=== PATIENT | female | born 1955 | race Caucasian/White ===

== ENCOUNTER → 2019-06-29 09:56 | Outpatient (CLI) | payer OTHER, SELFPAY ==
--- NOTE | 2019-06-29 10:35 | MM_ITS ---
PROCEDURE: MM DIG SCREENING MAMM BI W/CAD CLINICAL INDICATION: SCREENING There is a history of breast cancer patient's paternal cousin diagnosed after menopause. COMPARISON: ALISA DIG SCREEN CAD LEA B from 05/13/2013 ALISA DIG SCREEN CAD LEA B from 12/07/2015 ALISA DIG SCREEN CAD LEA B from 03/13/2017 ALISA SCREENING from 03/31/2018 TECHNIQUE: Standard CC and MLO images were obtained. R2 CAD reviewed. FINDINGS: Mild scattered fibroglandular densities are seen throughout both breasts. The findings are fairly symmetrical bilaterally. There is no suspicious lesion and no suspicious microcalcifications. IMPRESSION: Fibrofatty parenchyma with no suspicious lesions seen BI-RAD Category: 1 Negative FOLLOW-UP: 1YR 1 Year Follow-up (A letter has been sent to the patient regarding results of the study.) Dictated by: Dr. Bahman Boykin MD 07/01/2019 15:[address] Bahman Boykin MD in [place] 07/01/2019 15:09
--- NOTE | 2019-06-29 10:35 | XR_ITS ---
PROCEDURE: XR DEXA AXIAL SKELETON CLINICAL HISTORY: post menopausal screening COMPARISON: No exams were available for comparison FINDINGS: Lumbar spine density not utilized due to underlying hardware. Lowest density in the hip is in the right femoral neck at 0.819 grams/centimeter sq with a T-score of -1.6 IMPRESSION: Osteopenia with moderate fracture risk. Treatment advised. Suggest follow-up exam June 2021 Dictated by: Олег Kang MD 06/29/2019 11:52 Electronically signed by Олег Kang MD in [place] 06/29/2019 11:52
== END ==
PROVIDERS: PCP Emergency Medicine; Visit Provider Emergency Medicine
DX: Z12.31 Encounter for screening mammogram for malignant neoplasm of breast (principal); Z13.820 Encounter for screening for osteoporosis; M85.89 Other specified disorders of bone density and structure, multiple sites
CPT/HCPCS: 77067; 77080

== ENCOUNTER → 2020-06-29 07:53 | Outpatient (CLI) | payer BC, SELFPAY ==
--- NOTE | 2020-06-29 07:55 | MM_ITS ---
PROCEDURE: MM DIG SCREENING MAMM BI W/CAD Referring Doctor: Chetan Ndiaye Patient Age:65Y CLINICAL INDICATION: SCREENING routine screening. No hormones.. No new complaints. Family history: Maternal cousin breast cancer age 68 COMPARISON: MG ALISA DIG SCREEN CAD LEA B from 12/07/2015 MG ALISA DIG SCREEN CAD LEA B from 03/13/2017 MG ALISA SCREENING from 03/31/2018 MG MM DIG SCREENING MAMM BI W/CAD from 06/29/2019 TECHNIQUE: Standard CC and MLO images were obtained. R2 CAD reviewed. Bilateral digital breast tomosynthesis included. FINDINGS: Mild/Moderate residual fibroglandular elements most notable at the retroareolar regions. No new dominant or suspicious mass, no suspicious calcifications. Stable architecture Right breast:. No new areas of concern. Stable Left breast no new areas of concern. Stable appearance since 2019. Small area of minimal nodularity at the lateral left breast is actually less evident today than it was on 2018 study likely cyst with interval regression IMPRESSION: Stable bilateral mammogram with no new areas of concern. Bilateral follow-up 1 year recommended BI-RAD Category: 1 Negative FOLLOW-UP: 1YR 1 Year Follow-up (A letter has been sent to the patient regarding results of the study.) Dictated by: Tim Mendieta MD 07/06/2020 10:40 Tim Mendieta MD in [place] 07/06/2020 10:40
== END ==
PROVIDERS: PCP Emergency Medicine; Visit Provider Family Medicine
DX: Z12.31 Encounter for screening mammogram for malignant neoplasm of breast (principal)
CPT/HCPCS: 77063; 77067

== ENCOUNTER → 2021-06-30 09:51 | Outpatient (CLI) | payer BC, MEDICARE, SELFPAY ==
[2021-06-30 10:20] LABS: Basophils # 0.1 K/mm3 (0-0.2); Basophils % 1.3 % (0.1-2.0); Eosinophils # 0.3 K/mm3 (0.0-0.4); Eosinophils % 6.4 % (0.1-12.0); Hematocrit 41.1 % (37.0-47.0); Hemoglobin 13.3 g/dL (12.2-16.2); Lymphocytes # 1.4 K/mm3 (0.7-4.5); Lymphocytes % 31.5 % (10-50); Mean Corpuscular HGB Conc 32.4 g/dL (31.8-35.4); Mean Corpuscular Volume 95.7 fl (81-99); Mean Platelet Volume 8.7 fl (7.4-10.4); Monocytes # 0.2 K/mm3 (0.1-1.0); Monocytes % 4.8 % (1.7-9.3); Neutrophils # 2.5 K/mm3 (1.8-7.8); Neutrophils % 56.1 % (37.0-80.0); Platelet Count 363 K/mm3 (142-424); Red Blood Count 4.29 M/mm3 (4.20-5.40); White Blood Count 4.4 K/mm3 (4.8-10.8)
[2021-06-30 10:40] LABS: Hemoglobin A1C 5.5 % (4.0-6.0)
[2021-06-30 11:13] LABS: Alanine Aminotransferase 25 U/L (12-78); Albumin/Globulin Ratio 1.6 (1.1-1.8); Alkaline Phosphatase 71 U/L (38-126); Anion Gap 9.4 mEq/L (5-15); Aspartate Amino Transferase 26 U/L (14-36); Bilirubin,Total 0.6 mg/dl (0.2-1.3); Blood Urea Nitrogen 13 mg/dl (7-17); Calcium 9.4 mg/dl (8.4-10.2); Carbon Dioxide 30 mmol/L (22.0-30.0); Chloride 103 mmol/L (98-107); Chol/HDL Ratio 2.3 (1-3.5); Cholesterol 202 mg/dl (140-200); Estimated Glomerular Filt Rate 72 ml/min (>60); GFR (African American) 87 ML/MIN (>60); Globulin 2.5 g/dL (1.3-3.2); Glucose 113 mg/dl (74-100); HDL Cholesterol 89 mg/dl (40-60); Potassium 4.4 mmoL/L (3.5-5.1); Sodium 138 mmol/L (136-145); Total Protein,Serum 6.5 g/dl (6.3-8.2); Triglycerides 60 mg/dl (30-150); VLDL Cholesterol 12 mg/dL (0-40)
[2021-06-30 11:28] LABS: 25-OH Vitamin D, Total 54.8 ng/mL (30-100)
[2021-06-30 11:41] LABS: Thyroid Stimulating Hormone 1.18 uIU/mL (0.465-4.68)
[2021-06-30 12:00] LABS: Vitamin B12 459 pg/mL (239-931)
== END ==
PROVIDERS: Visit Provider Family Medicine
DX: R63.5 Abnormal weight gain (principal); E55.9 Vitamin D deficiency, unspecified; Z13.1 Encounter for screening for diabetes mellitus
CPT/HCPCS: 36415; 80053; 80061; 82306; 82607; 83036; 84443; 85025

== ENCOUNTER → 2021-07-17 07:47 | Outpatient (CLI) | payer BC, MEDICARE, SELFPAY ==
--- NOTE | 2021-07-17 07:50 | MM_ITS ---
PROCEDURE INFORMATION: Exam: MG Bilateral Screening 3D Mammography Exam date and time: 07/17/2021 7:50 AM Age: 66 years old Clinical indication: Encounter for screening mammogram for malignant neoplasm of breast TECHNIQUE: Imaging protocol: Bilateral screening tomosynthesis and 2D mammography including computer-aided detection (CAD) when performed. COMPARISON: 1. MG MM DIG SCREENING MAMM BI W/CAD 06/29/2020 8:25 AM 2. MG MM DIG SCREENING MAMM BI W/CAD 06/29/2019 10:57 AM FINDINGS: MAMMOGRAPHY: Breast composition: The breast tissue is composed of scattered areas of fibroglandular density. Mass: None. Architectural distortion: None. Calcifications: No suspicious calcifications. Asymmetric density: None. Skin thickening: None. Axillary adenopathy: None. IMPRESSION: No mammographic evidence of malignancy. Annual screening is recommended unless otherwise clinically indicated. ASSESSMENT: BI-RADS Category 1: Negative
== END ==
PROVIDERS: PCP Family Medicine; Visit Provider Family Medicine
DX: Z12.31 Encounter for screening mammogram for malignant neoplasm of breast (principal)
CPT/HCPCS: 77063; 77067

== ENCOUNTER → 2022-03-17 08:29 | Outpatient (CLI) | payer BC, SELFPAY ==
[2022-03-17 11:19] LABS: Alanine Aminotransferase 44 U/L (12-78); Albumin Level 4.1 g/dl (3.5-5.0); Albumin/Globulin Ratio 1.6 (1.1-1.8); Alkaline Phosphatase 101 U/L (38-126); Anion Gap 9.5 mEq/L (5-15); Aspartate Amino Transferase 38 U/L (14-36); Bilirubin,Total 0.5 mg/dl (0.2-1.3); Blood Urea Nitrogen 17 mg/dl (7-17); Calcium 9.4 mg/dl (8.4-10.2); Carbon Dioxide 28 mmol/L (22.0-30.0); Chloride 104 mmol/L (98-107); Chol/HDL Ratio 2.9 (1-3.5); Cholesterol 227 mg/dl (140-200); Estimated Glomerular Filt Rate 63 ml/min (>60); GFR (African American) 76 ML/MIN (>60); Globulin 2.5 g/dL (1.3-3.2); Glucose 107 mg/dl (74-100); HDL Cholesterol 78 mg/dl (40-60); Potassium 4.5 mmoL/L (3.5-5.1); Sodium 137 mmol/L (136-145); Total Protein,Serum 6.6 g/dl (6.3-8.2); Triglycerides 63 mg/dl (30-150); VLDL Cholesterol 13 mg/dL (0-40)
[2022-03-17 11:28] LABS: NT Pro Brain Natriuretic Pep. 59.8 pg/mL (0-125)
[2022-03-17 11:29] LABS: Direct LDL Cholesterol 106.03 mg/dL (100-129)
[2022-03-17 11:35] LABS: 25-OH Vitamin D, Total 46.1 ng/mL (30-100)
[2022-03-17 11:50] LABS: Thyroid Stimulating Hormone 1.18 uIU/mL (0.465-4.68)
[2022-03-17 13:10] LABS: Hemoglobin A1C 5.5 % (4.0-6.0)
== END ==
PROVIDERS: PCP Family Medicine; Visit Provider Physician Assistant
DX: R60.0 Localized edema (principal); R73.01 Impaired fasting glucose; E55.9 Vitamin D deficiency, unspecified; Z13.220 Encounter for screening for lipoid disorders
CPT/HCPCS: 36415; 80053; 80061; 82306; 83036; 83880; 84443

== ENCOUNTER → 2022-03-19 14:58 | Outpatient (CLI) | payer BC, SELFPAY ==
--- NOTE | 2022-03-19 15:01 | CA_ITS ---
APPROVED REPORT EXAM: Comprehensive 2D, Doppler, and color-flow Echocardiogram Sample Carrier: María Elena Noriega RT(R) Ht: 5 ft 4 in Wt: 230lbs BSA: 2.08 BP: 120/86 mmHg Indications: SOA, palpitations, fatigue, edema, family history of HD. 2D Dimensions LVOT 1.96 cm (M/F) 1.5-2.5 LVEF (Akins's) 67.30 % F: 54 - 74 LV Volume 101.00 mL F: 46 - 106 LV Volume Index 48.79 mL/m2 F: 29 - 61 LA Volume 40.40 mL LA Volume Index 19.51 mL/m2 (M/F) 16-34 M-Mode Dimensions RVDd 2.58 cm (0.9-2.6) LA Diam 3.27 cm (1.9-4.0) LVDd 3.38 cm (3.5-5.7) Ao Diam 3.11 cm (2.0-3.7) LVDs 2.05 cm (3.5-5.7) IVSd 1.13 cm (0.6-1.1) PWd 0.81 cm (0.6-1.1) EF (Teich) 70.90% FS 39.30% EDV (Teich) 46.80 mL ESV (Teich) 13.60 mL LV Diastology E Decel Time 187.00 (160-240 msec) E/A Ratio 0.9 MED E' 8.60 (< 7 cm/sec) E'/MED E' Ratio 10.38 (>14) LAT E' 11.30 (<10 cm/sec) E/LAT E' Ratio 7.90 (>14) Mitral Valve MV E Max Zaid. 89.00 (40-130 cm/s) MV A Velocity 103.00 (40-130 cm/s) E/A Ratio 0.87 MV Decel. Time 187.00 (160-240 ms) MV PHT 55.00 ms Left Ventricle Left atrium normal size, left ventricle is normal size, there is no concentric left ventricular hypertrophy, estimated ejection fraction 55% with no regional wall motion abnormality. Diastolic parameters are within normal range. Right Ventricle Right atrium and right ventricle are normal size and contractility. Aortic Valve Aortic valve is grossly normal there is no aortic stenosis or aortic insufficiency. Mitral Valve Mitral valve grossly normal, there is trace mitral regurgitation. Tricuspid Valve Tricuspid valve grossly normal, there is trace tricuspid regurgitation, tricuspid regurgitation jet velocity is inadequate for calculation of the right ventricular systolic pressure. Pulmonic Valve Pulmonic valve is poorly visualized. Great Vessels Aortic root is normal size. Inferior vena cava is poorly visualized. Pericardium No significant pericardial effusion noted. Conclusion 1. Normal left ventricular size preserved left ventricular systolic function, estimated ejection fraction 55% with no regional wall motion abnormality, diastolic parameters are within normal range. 2. Trace mitral and tricuspid regurgitation. 3. No significant pericardial effusion noted 4. Inferior vena cava is poorly visualized. Electronically signed by : Murali Guzman MD 03/19/2022 18:51:38
== END ==
LOC: RT 14:59
PROVIDERS: PCP Family Medicine; Visit Provider Physician Assistant
DX: R06.02 Shortness of breath (principal)
CPT/HCPCS: 93306

== ENCOUNTER → 2022-05-04 10:11 | Outpatient (CLI) | payer BC, SELFPAY ==
[2022-05-04 11:45] LABS: Alanine Aminotransferase 25 U/L (12-78); Albumin Level 3.6 g/dl (3.5-5.0); Albumin/Globulin Ratio 1.5 (1.1-1.8); Alkaline Phosphatase 79 U/L (38-126); Anion Gap 11.3 mEq/L (5-15); Aspartate Amino Transferase 31 U/L (14-36); Bilirubin,Total 0.3 mg/dl (0.2-1.3); Blood Urea Nitrogen 11 mg/dl (7-17); Calcium 8.7 mg/dl (8.4-10.2); Carbon Dioxide 29 mmol/L (22.0-30.0); Chloride 103 mmol/L (98-107); Estimated Glomerular Filt Rate 72 ml/min (>60); GFR (African American) 87 ML/MIN (>60); Globulin 2.4 g/dL (1.3-3.2); Glucose 111 mg/dl (74-100); Potassium 4.3 mmoL/L (3.5-5.1); Sodium 139 mmol/L (136-145)
== END ==
PROVIDERS: PCP Family Medicine; Visit Provider Physician Assistant
DX: R60.0 Localized edema (principal); R79.89 Other specified abnormal findings of blood chemistry
CPT/HCPCS: 36415; 80053

== ENCOUNTER → 2022-06-08 13:35 | Outpatient (CLI) | payer BC, OTHER, SELFPAY ==
--- NOTE | 2022-06-08 13:40 | XR_ITS ---
FINAL REPORT CLINICAL HISTORY: knee pain FINDINGS: RIGHT KNEE 4 views of the right knee were obtained. There is no acute fracture or dislocation. There are moderate and severe degenerative changes. There is severe patellofemoral compartment narrowing. There is a chronic osteochondral lesion in the lateral femoral condyle. There are subchondral cysts in the distal femur and proximal tibia. Visualized joint spaces are normally aligned. Soft tissues are unremarkable. IMPRESSION: Moderate and severe degenerative changes with severe patellofemoral compartment narrowing. Reviewed, Interpreted and Dictated by Cedric Smith III, MD Transcribed by Michell Guzman Authenticated and . [facility]
== END ==
PROVIDERS: PCP Family Medicine; Visit Provider Orthopaedic Surgery
DX: M25.561 Pain in right knee (principal)
CPT/HCPCS: 73564

== ENCOUNTER → 2022-07-20 17:01 | Outpatient (CLI) | payer BC, OTHER, SELFPAY ==
--- NOTE | 2022-07-20 17:05 | MM_ITS ---
PROCEDURE INFORMATION: Exam: MG Bilateral Screening 3D Mammography Exam date and time: 07/20/2022 4:56 PM Age: 67 years old Clinical indication: Screening examination TECHNIQUE: Imaging protocol: Bilateral Screening tomosynthesis and 2D mammography including computer-aided detection (CAD) when performed. COMPARISON: 1. MG MM DIG SCREENING MAMM BI W/CAD 07/17/2021 7:58 AM 2. MG MM DIG SCREENING MAMM BI W/CAD 06/29/2020 8:25 AM FINDINGS: MAMMOGRAPHY: Breast composition: There are scattered areas of fibroglandular density. Mass: None. Architectural distortion: None. Calcifications: No suspicious calcifications. Asymmetric density: None. Skin thickening: None. Axillary adenopathy: None. IMPRESSION: No mammographic evidence of malignancy. Annual screening is recommended unless otherwise clinically indicated. ASSESSMENT: BI-RADS Category 1: Negative
== END ==
PROVIDERS: PCP Family Medicine; Visit Provider Family Medicine
DX: Z12.31 Encounter for screening mammogram for malignant neoplasm of breast (principal)
CPT/HCPCS: 77063; 77067

== ENCOUNTER → 2022-12-03 18:11 | Outpatient (CLI) | payer BC, OTHER, SELFPAY | PROVIDERS: PCP Family Medicine; Visit Provider Family Medicine | DX: G47.33 Obstructive sleep apnea (adult) (pediatric) (principal) | CPT/HCPCS: G0399 ==

== ENCOUNTER 2023-01-09 09:02 | Day surgery (SDC) | payer BC, OTHER, SELFPAY ==
[2022-12-31 13:36] VITALS: BMI 37.4
[2023-01-09] VITALS (7 sets, daily range): BP systolic 93–139; BP diastolic 67–85; PULSE 61–94; RESP 16–18; TEMP 36.7–36.9; O2SAT 94–99; BMI 36.2
--- NOTE | 2023-01-09 10:17 | HMH.SCOPE ---
Procedure: Date: 01/09/23 Patient Date of :: 1955 Procedure Performed:: Colonoscopy Indications:: The patient is a 67 year old who presents for surveillance colonoscopy for a history of colon polyps. There is a family history of colon cancer in mother Performing Provider:: Pete Haywood MD Referring Provider:: Ryann De Santiago Sedation:: see rn records Procedure:: After placing the patient in the left lateral decubitus position, the colonoscopy was gently inserted into the rectum and under direct visualization advanced to the cecum which was identified by transillumination in the right lower quadrant, identification of the ileocecal valve, appendiceal orifice, and cecal strap. Color, texture, mucosa, and anatomy of the colon were carefully examined with the scope. Findings:: Anal canal: normal Rectum: normal Sigmoid colon: diverticulosis Descending colon: diverticulosis Splenic flexure: normal Transverse colon: normal without polyps or inflammatory changes Hepatic flexure: normal Ascending colon: normal without polyps or inflammatory changes Cecum: normal Terminal ileum: not visualized Bowel preparation was excellent Impression: Left-sided diverticulosis of the colon Recommendations:: Higher fiber diet Repeat colonoscopy in 5 years Complications:: none Estimated blood obtained (mL): 0
--- NOTE | 2023-01-09 10:22 | P.PN_ITS ---
[facility] Disclaimer: The information contained in this section may have been updated after the patient was seen, as this information can be updated by other users. Medical History ADHD Surgical History (Updated 12/31/22 @ 13:38 by Brittany Simms RN) H/O spinal fusion History of cholecystectomy S/P appendectomy S/P cataract extraction S/P colonoscopy S/P hysterectomy with oophorectomy S/P meniscectomy S/P tonsillectomy S/P total knee arthroplasty Family History (Updated 12/31/22 @ 13:38 by Brittany Simms RN) Father Coronary artery disease Heart attack Mother Cancer Brother Coronary artery disease Other Family history of Alzheimer's disease Social History (Updated 12/31/22 @ 13:38 by Brittany Simms RN) Smoking Status: Former smoker pack-years: 30 years smoked: 30 smoking status stop date: 2016 alcohol intake: never substance use type: denies use current occupational status: employed and other Travel in the last 8 weeks: None household members: family housing: house lives independently: No marital status: number of children: 3 education level: master's degree caffeine: Yes do you feel safe at home: Yes victim of physical abuse: No victim of emotional abuse: No victim of sexual abuse: No would you like helpful sources: No [facility] Anesthesia Checklist Patient Identification Patient Identification: Verbal (Name & ) Structural Data Admitted From: Home Planned Operative Procedure/s: colonoscopy Consent for Planned Operative Procedure(s) Verified: Yes Airway Assessment C-Spine Mobility Assessed: Yes TMJ Mobility Assessed: Yes Dentition: Good Dentition Neurological Assessment Level of Consciousness: Awake, Alert and Appropriate Anesthesia Plan Anesthesia Risk discussed: Yes Anesthesia Plan: Verified ASA Class: II Anesthesia Type: MAC
== END 2023-01-09 11:10 | disposition home or self-care (01) ==
PROVIDERS: PCP Family Medicine; Visit Provider Internal Medicine
PROC: 0DJD8ZZ Inspection of Lower Intestinal Tract, Via Natural or Artificial Opening Endoscopic (ICD-10-PCS; CPT 45378; principal; 2023-01-09 10:00)
DX: Z12.11 Encounter for screening for malignant neoplasm of colon (principal); Z86.010 Personal history of colon polyps; Z80.0 Family history of malignant neoplasm of digestive organs; K57.30 Diverticulosis of large intestine without perforation or abscess without bleeding; Z79.899 Other long term (current) drug therapy
CPT/HCPCS: 45378

== ENCOUNTER → 2023-07-30 10:54 | Outpatient (CLI) | payer BC, OTHER, SELFPAY ==
--- NOTE | 2023-07-30 10:59 | MM_ITS ---
PROCEDURE INFORMATION: Exam: MG Bilateral Screening 3D Mammography Exam date and time: 07/30/2023 10:54 AM Age: 68 years old Clinical indication: Screening examination TECHNIQUE: Imaging protocol: Bilateral Screening tomosynthesis and 2D mammography including computer-aided detection (CAD) when performed. COMPARISON: 1. MG MM DIG SCREENING MAMM BI W/CAD 07/20/2022 4:56 PM 2. MG MM DIG SCREENING MAMM BI W/CAD 07/17/2021 7:58 AM FINDINGS: MAMMOGRAPHY: Breast composition: There are scattered areas of fibroglandular density. Mass: None. Architectural distortion: None. Calcifications: No suspicious calcifications. Asymmetric density: None. Skin thickening: None. Axillary adenopathy: None. IMPRESSION: No mammographic evidence of malignancy. Annual screening is recommended unless otherwise clinically indicated. ASSESSMENT: BI-RADS Category 1: Negative
== END ==
PROVIDERS: PCP Family Medicine; Visit Provider Family Medicine
DX: Z12.31 Encounter for screening mammogram for malignant neoplasm of breast (principal)
CPT/HCPCS: 77063; 77067

== ENCOUNTER 2024-08-03 08:29 | Outpatient (CLI) | payer MEDICARE, OTHER, SELFPAY ==
--- NOTE | 2024-08-03 08:42 | MM_ITS ---
PROCEDURE INFORMATION: Exam: MG Bilateral Screening 3D Mammography Exam date and time: 08/03/2024 8:27 AM Age: 69 years old Clinical indication: Screening examination TECHNIQUE: Imaging protocol: Bilateral Screening tomosynthesis and 2D mammography including computer-aided detection (CAD) when performed. COMPARISON: 1. MG MM DIG SCREENING MAMM BI W/CAD 07/30/2023 10:54 AM 2. MG MM DIG SCREENING MAMM BI W/CAD 07/20/2022 4:56 PM FINDINGS: MAMMOGRAPHY: Breast composition: There are scattered areas of fibroglandular density. Mass: None. Architectural distortion: None. Calcifications: No suspicious calcifications. Asymmetric density: None. Skin thickening: None. Axillary adenopathy: None. IMPRESSION: No mammographic evidence of malignancy. Annual screening is recommended unless otherwise clinically indicated. ASSESSMENT: BI-RADS Category 1: Negative.
== END 2024-08-03 23:59 | disposition home or self-care (01) ==
LOC: RAD 08:30
PROVIDERS: PCP Family Medicine; Visit Provider Family Medicine
DX: Z12.31 Encounter for screening mammogram for malignant neoplasm of breast (principal)
CPT/HCPCS: 77063; 77067

== ENCOUNTER 2024-10-13 08:56 | Outpatient (CLI) | payer MEDICARE, OTHER, SELFPAY ==
--- NOTE | 2024-10-13 08:59 | XR_ITS ---
FINAL REPORT TECHNIQUE: Bone mineral density was calculated of the lumbar spine and hip. CLINICAL HISTORY: SCREENING FINDINGS: Using L1-4, the bone mineral density of the spine is 0.988 g/cm2, corresponding to T-score of -0.5. Using the left hip, the bone mineral density of the femoral neck is 0.674 g/cm2, corresponding to a T-score of -1.6. Using the right hip, the bone mineral density of the femoral neck is 0.674 g/cm?, resulting in a T-score of -1.6. NOTE: T-score: Standard deviation compared with peak bone mass of young adult mean. *Following the recommendations of the International Society of Bone densitometry, classification of hip BMD is based on the lower of two T-scores; total hip or femoral neck. IMPRESSION: Diminished bone mineral density of the bilateral hips consistent with osteopenia. Normal bone mineral density of the lumbar spine. Reviewed, Interpreted and Dictated by Pilar Escalera MD Transcribed by Sharri Arroyo Authenticated and [facility]
== END 2024-10-13 23:59 | disposition home or self-care (01) ==
LOC: RAD 08:57
PROVIDERS: PCP Family Medicine; Visit Provider Family Medicine
DX: Z13.820 Encounter for screening for osteoporosis (principal); M85.88 Other specified disorders of bone density and structure, other site
CPT/HCPCS: 77080